=== PATIENT | male | born 1955 | race Caucasian/White ===

== ENCOUNTER 2017-04-13 22:05 | Emergency (ER) | payer OTHER ==
[~2017-04-13] VITALS: Ht 177.8 cm; Wt 95.0 kg
[~2017-04-13 22:05] MED LIST: AUGMENTIN 875-1 EAC2 PO; CEFDINIR300 M1 PO; NORCO 5-325 TA1 EACH PO
[2017-04-14] MEDS ORDERED: KEFLEX500 M4 PO (01:18)
[2017-04-14] MEDS ORDERED: NORCO 5-325 TA1 EACH PO (01:18)
== END 2017-04-14 01:32 ==
LOC: EDMED 22:05
PROC: 0HQGXZZ Repair Left Hand Skin, External Approach (ICD-10-PCS; principal; 2017-04-13)
DX: S62.635B Displaced fracture of distal phalanx of left ring finger, initial encounter for open fracture (principal); Z23 Encounter for immunization; W29.3XXA Contact with powered garden and outdoor hand tools and machinery, initial encounter; Y92.019 Unspecified place in single-family (private) house as the place of occurrence of the external cause